=== PATIENT | male | born 1970 | race Caucasian/White ===

== ENCOUNTER 2018-10-04 16:08 | Inpatient (IN) | payer BC ==
[~2018-10-04] VITALS: Ht 182.9 cm; Wt 125.0 kg
[2018-10-04 17:45] LABS: BASOPHILS # (AUTO) 0.1 X10'3 (0-0.2); BASOPHILS % (AUTO) 0.6 % (0-1); EOSINOPHILS # (AUTO) 0.1 X10'3 (0-0.9); EOSINOPHILS % (AUTO) 0.5 % (0-6); HEMATOCRIT 41.4 % (42.0-52.0); HEMOGLOBIN 13.8 g/dl (14.0-17.9); LYMPHOCYTES % (AUTO) 11.9 % (21-51); MEAN CORPUSCULAR HEMOGLOBIN 29.8 PG (27.0-31.0); MEAN CORPUSCULAR HGB CONC 33.4 g/dL (33.0-36.5); MEAN CORPUSCULAR VOLUME 89.3 FL (78-98); MEAN PLATELET VOLUME 8.2 FL (7.4-10.4); MONOCYTES # (AUTO) 1.8 X10'3 (0-0.9); MONOCYTES % (AUTO) 10.7 % (2-12); NEUTROPHILS # (AUTO) 12.8 X10'3 (1.8-7.7); NEUTROPHILS % (AUTO) 76.3 % (42-75); PLATELET COUNT 461 X10'3 (140-440); RED BLOOD COUNT 4.64 X10'6 (4.70-6.10); RED CELL DISTRIBUTION WIDTH 13.1 % (11.5-14.5); WHITE BLOOD COUNT 16.7 X10'3 (4.5-11.0)
[2018-10-04 17:52] LABS: ALANINE AMINOTRANSFERASE 33 U/L (12-78); ALBUMIN 3.2 G/DL (3.4-5.0); ALBUMIN/GLOBULIN RATIO 0.7 (1.1-1.5); ALKALINE PHOSPHATASE 79 IU/L (46-116); ANION GAP 12 (8-16); ASPARTATE AMINO TRANSFERASE 15 U/L (10-37); BILIRUBIN,TOTAL 0.6 MG/DL (0.1-1.0); BLOOD UREA NITROGEN 9 MG/DL (7-18); BUN/CREATININE RATIO 12.9 (5.4-32.0); CALCIUM 9.2 MG/DL (8.5-10.1); CHLORIDE 101 MMOL/L (99-107); GLUCOSE 101 MG/DL (70-104); LIPASE 89 U/L (73-393); POTASSIUM 3.6 MMOL/L (3.5-5.1); SODIUM 137 MMOL/L (135-145); eGFR > 90 ML/MIN
[2018-10-04] MEDS ORDERED: piperacillin/tazo 3.375gm/50ml 50 ML IV ONE (19:00)
[2018-10-04] MEDS ORDERED: ondansetron/PF 4mg/2ml inj IV PRN (19:40)
[2018-10-04] MEDS ORDERED: mag hydrox/Alum hydrox/simeth 30ml oral suspension PO PRN (19:40)
[2018-10-04] MEDS ORDERED: magnesium hydroxide 30ml (MOM) UD suspension PO PRN (19:40)
[2018-10-04] MEDS ORDERED: acetaminophen 325mg tablet PO PRN (19:40)
[2018-10-04] MEDS ORDERED: ATEN-169 PO (19:42)
[2018-10-04] MEDS ORDERED: PRAV40TA3 PO (19:42)
[2018-10-04] MEDS: normal saline 1000ml 1,000 ML IV SCH (20:05)
[2018-10-04] MEDS ORDERED: atorvastatin 20mg tablet PO SCH (21:00)
[2018-10-04] MEDS ORDERED: Melatonin 3mg tablet PO PRN (21:20)
[2018-10-04] MEDS: heparin, porcine 5000 units/ml vial SQ SCH (21:31)
[2018-10-04 21:44] VITALS: BP 133/67
[2018-10-05] VITALS: BP 139/82
[2018-10-05] MEDS: piperacillin/tazo 3.375gm/50ml 50 ML IV SCH ×2 (00:35→08:37)
[2018-10-05 05:06] LABS: BASOPHILS # (AUTO) 0.1 X10'3 (0-0.2); BASOPHILS % (AUTO) 0.9 % (0-1); EOSINOPHILS # (AUTO) 0.3 X10'3 (0-0.9); EOSINOPHILS % (AUTO) 3.1 % (0-6); HEMATOCRIT 37.6 % (42.0-52.0); HEMOGLOBIN 12.6 g/dl (14.0-17.9); LYMPHOCYTES # (AUTO) 2.2 X10'3 (1.1-4.8); LYMPHOCYTES % (AUTO) 23.5 % (21-51); MEAN CORPUSCULAR HEMOGLOBIN 29.8 PG (27.0-31.0); MEAN CORPUSCULAR HGB CONC 33.4 g/dL (33.0-36.5); MEAN CORPUSCULAR VOLUME 89.2 FL (78-98); MEAN PLATELET VOLUME 7.7 FL (7.4-10.4); MONOCYTES # (AUTO) 1.4 X10'3 (0-0.9); MONOCYTES % (AUTO) 14.3 % (2-12); NEUTROPHILS # (AUTO) 5.5 X10'3 (1.8-7.7); NEUTROPHILS % (AUTO) 58.2 % (42-75); PLATELET COUNT 375 X10'3 (140-440); RED BLOOD COUNT 4.22 X10'6 (4.70-6.10); WHITE BLOOD COUNT 9.5 X10'3 (4.5-11.0)
[2018-10-05 05:26] LABS: ALANINE AMINOTRANSFERASE 27 U/L (12-78); ALBUMIN 2.7 G/DL (3.4-5.0); ALBUMIN/GLOBULIN RATIO 0.6 (1.1-1.5); ALKALINE PHOSPHATASE 66 IU/L (46-116); ANION GAP 8 (8-16); ASPARTATE AMINO TRANSFERASE 13 U/L (10-37); BILIRUBIN,TOTAL 0.6 MG/DL (0.1-1.0); BLOOD UREA NITROGEN 8 MG/DL (7-18); BUN/CREATININE RATIO 11.1 (5.4-32.0); CALCIUM 8.4 MG/DL (8.5-10.1); CHLORIDE 103 MMOL/L (99-107); CREATININE 0.72 MG/DL (0.60-1.10); GLUCOSE 96 MG/DL (70-104); POTASSIUM 3.6 MMOL/L (3.5-5.1); SODIUM 138 MMOL/L (135-145); eGFR > 90 ML/MIN
[2018-10-05] MEDS: normal saline 1000ml 1,000 ML IV SCH (05:35)
--- NOTE | 2018-10-05 06:30 | NUR ---
Patient in room [facility]. I have received report from CHASE Damico RN and had the opportunity to ask questions and assume patient care.
--- NOTE | 2018-10-05 06:33 | NUR ---
Problems reprioritized. Patient report given, questions answered & plan of care reviewed with KVNG Barboza. Addendum: 10/05/18 at 0633 by Abby Cruz RN Amended: Links added.
[2018-10-05 07:11] VITALS: BP 140/79
[2018-10-05] MEDS ORDERED: atenolol 50mg tablet PO SCH (08:00)
[2018-10-05] MEDS: heparin, porcine 5000 units/ml vial SQ SCH (08:29)
[2018-10-05 11:20] VITALS: BP 137/87
[2018-10-05] MEDS ORDERED: METR-159 PO (15:28)
[2018-10-05] MEDS ORDERED: CIPR-230 PO (15:28)
--- NOTE | 2018-10-05 16:32 | NUR ---
PT DISCHARGED IN STABLE CONDITION. LEFT FACILITY IN PRIVATE VEHICLE WITH . IV DC CANULA INTACT. ALL BELONGINGS IN HAND. FOLLOW UP INSTRUCTIONS GIVEN, ALL QUESTIONS ANSWERED. Addendum: 10/05/18 at 1634 by Tamra Lloyd RN Amended: Links added.
[2018-10-05] MEDS ORDERED: lactobacillus rhamnosus 10,000 MMU CELLS/CAPSULE PO SCH (20:00)
== END 2018-10-05 16:32 | disposition home or self-care (01) | DRG 392 ==
LOC: ER 16:09 → ED HOLD 20:03 → SUR 3N 20:55
PROVIDERS: ADMIT Internal Medicine; ATTEND Family Medicine
DX: K57.20 Diverticulitis of large intestine with perforation and abscess without bleeding (principal); N13.30 Unspecified hydronephrosis; D64.9 Anemia, unspecified; E78.5 Hyperlipidemia, unspecified; I10 Essential (primary) hypertension; F17.200 Nicotine dependence, unspecified, uncomplicated; Z79.899 Other long term (current) drug therapy
CPT/HCPCS: 36415; 74176; 80053; 83605; 83690; 84145; 85025; 85610; 87040; 87081; 96365; 99285; G0378; J1644; J2543; J7030